=== PATIENT | female | born 1995 | race Caucasian/White ===

== ENCOUNTER 2019-05-30 16:51 | Emergency (ER) | payer SELFPAY ==
[~2019-05-30] VITALS: Ht 165.1 cm; Wt 73.5 kg
== END 2019-05-30 19:15 | disposition home or self-care (01) ==
LOC: ED 16:51
DX: O26.891 Other specified pregnancy related conditions, first trimester (principal); S92.531A Displaced fracture of distal phalanx of right lesser toe(s), initial encounter for closed fracture; Z3A.12 12 weeks gestation of pregnancy; W10.9XXA Fall (on) (from) unspecified stairs and steps, initial encounter; Y93.01 Activity, walking, marching and hiking; Y92.89 Other specified places as the place of occurrence of the external cause; Y99.8 Other external cause status

== ENCOUNTER 2020-05-17 15:19 | Emergency (ER) | payer OTHER ==
[~2020-05-17] VITALS: Ht 165.1 cm; Wt 65.8 kg
[2020-05-17 16:00] LABS: BASO % 0.3 % (0.0-1.0); HEMATOCRIT 39.8 % (37.0-47.0); LYMPH # 1.1 10*3/uL (1.3-4.4); LYMPH % 10.6 % (27.0-41.0); MEAN CELL VOLUME 88.4 fl (81.0-99.0); MEAN CORPUSCULAR HGB 28.7 pg (27.0-31.0); MEAN CORPUSCULAR HGB CONC 32.4 g/dl (33.0-37.0); MEAN PLATELET VOLUME 12.6 fl (9.6-12.3); MONO # 0.4 10*3/uL (0.1-1.0); MONO % 3.7 % (3.0-9.0); NEUT # 8.7 10*3/uL (2.3-7.9); NEUT % 85.2 % (47.0-73.0); PLATELET COUNT AUTOMATED 222 10*3/uL (130-400); RED CELL DISTRI WIDTH 13.1 % (0-14.5); WHITE BLOOD COUNT 10.2 10*3/uL (4.8-10.8)
[2020-05-17 16:17] LABS: ALBUMIN 3.4 gm/dl (3.1-4.5); ALKALINE PHOSPHATASE 209 U/L (45-117); BUN 8 mg/dl (7-24); CHLORIDE 108 mmol/L (98-107); CREATININE 0.73 mg/dL (0.55-1.02); POTASSIUM 3.2 mmol/L (3.5-5.1); SGOT/AST 162 IU/L (3-35); SGPT/ALT 134 U/L (12-78); SODIUM 141 mmol/L (136-145); TOTAL PROTEIN 7.8 gm/dL (6.4-8.2)
[2020-05-17 16:19] LABS: BETA-HCG, QUANT < 1.0 mIU/mL (1-3)
[2020-05-17 16:37] LABS: BILIRUBIN 2+ (Negative); BLOOD Negative (Negative); CLARITY Cloudy (Clear); COLOR Dark Yellow (Yellow); GLUCOSE Negative (Negative); KETONE 3+ (Negative); LEUKO ESTERASE 1+ (Negative); NITRITE Negative (Negative); SPECIFIC GRAVITY >= 1.030 (1.001-1.030)
[2020-05-17 16:52] LABS: BACTERIA 2+; MUCOUS 1+; WBC 16-20 wbc/hpf (0-5)
[2020-05-17] MEDS ORDERED: HYDROCODONE-AC1 EAC1 PO (17:14)
== END 2020-05-17 17:22 | disposition home or self-care (01) ==
LOC: ED 15:19
PROVIDERS: Student in an Organized Health Care Education/Training Program
DX: K80.50 Calculus of bile duct without cholangitis or cholecystitis without obstruction (principal)

== ENCOUNTER 2020-05-19 11:03 | Inpatient (IN) | payer OTHER ==
[~2020-05-19] VITALS: Ht 165.1 cm; Wt 66.0 kg
[~2020-05-19 11:03] MED LIST: HYDROCODONE-AC1 EAC1 PO
[2020-05-19 11:11] VITALS: BP 118/68
[2020-05-19 11:54] LABS: BASO % 0.4 % (0.0-1.0); EOS % 0.3 % (1.0-4.0); HEMATOCRIT 41.8 % (37.0-47.0); LYMPH # 1.5 10*3/uL (1.3-4.4); LYMPH % 13.4 % (27.0-41.0); MEAN CELL VOLUME 90.9 fl (81.0-99.0); MEAN CORPUSCULAR HGB 28.7 pg (27.0-31.0); MEAN CORPUSCULAR HGB CONC 31.6 g/dl (33.0-37.0); MEAN PLATELET VOLUME 12.1 fl (9.6-12.3); MONO # 0.4 10*3/uL (0.1-1.0); MONO % 3.9 % (3.0-9.0); NEUT # 8.9 10*3/uL (2.3-7.9); NEUT % 81.7 % (47.0-73.0); PLATELET COUNT AUTOMATED 247 10*3/uL (130-400); RED CELL DISTRI WIDTH 13.9 % (0-14.5); WHITE BLOOD COUNT 10.9 10*3/uL (4.8-10.8)
[2020-05-19 12:04] VITALS: BP 110/69
[2020-05-19 12:10] LABS: ALBUMIN 3.4 gm/dl (3.1-4.5); ALKALINE PHOSPHATASE 292 U/L (45-117); BUN 12 mg/dl (7-24); CHLORIDE 109 mmol/L (98-107); LIPASE 71 U/L (73-393); SGOT/AST 173 IU/L (3-35); SGPT/ALT 207 U/L (12-78); SODIUM 139 mmol/L (136-145); TOTAL PROTEIN 8.3 gm/dL (6.4-8.2)
[2020-05-19 12:14] LABS: BETA-HCG, QUANT < 1.0 mIU/mL (1-3)
[2020-05-19 13:21] LABS: BILIRUBIN 2+ (Negative); BLOOD Negative (Negative); CLARITY Cloudy (Clear); COLOR Dark Yellow (Yellow); GLUCOSE Negative (Negative); KETONE Negative (Negative); LEUKO ESTERASE 1+ (Negative); NITRITE Negative (Negative); PH 5.5 (4.5-8.0); SPECIFIC GRAVITY >= 1.030 (1.001-1.030)
[2020-05-19 13:27] LABS: BACTERIA 2+; MUCOUS 1+
[2020-05-19 13:28] LABS: EPITHELIAL CELLS 16-20
[2020-05-19 13:29] LABS: RBC 0-2 rbc/hpf (0-2); WBC 21-30 wbc/hpf (0-5)
[2020-05-19 15:22] VITALS: BP 122/76
[2020-05-19 15:40] VITALS: BP 123/74
[2020-05-19 20:00] VITALS: BP 120/76
[2020-05-20] VITALS (11 sets, daily range): BP systolic 102–142; BP diastolic 68–95
[2020-05-20 06:38] LABS: BASO % 0.3 % (0.0-1.0); EOS # 0.1 10*3/uL (0.0-0.4); EOS % 1.9 % (1.0-4.0); HEMATOCRIT 35.7 % (37.0-47.0); LYMPH # 1.4 10*3/uL (1.3-4.4); LYMPH % 21.8 % (27.0-41.0); MEAN CELL VOLUME 91.8 fl (81.0-99.0); MEAN CORPUSCULAR HGB CONC 31.7 g/dl (33.0-37.0); MEAN PLATELET VOLUME 12.6 fl (9.6-12.3); MONO # 0.5 10*3/uL (0.1-1.0); NEUT # 4.2 10*3/uL (2.3-7.9); NEUT % 67.8 % (47.0-73.0); PLATELET COUNT AUTOMATED 212 10*3/uL (130-400); RED BLOOD COUNT 3.89 10*6/uL (4.10-5.10); RED CELL DISTRI WIDTH 13.7 % (0-14.5); WHITE BLOOD COUNT 6.2 10*3/uL (4.8-10.8)
[2020-05-20 06:59] LABS: ALBUMIN 2.7 gm/dl (3.1-4.5); BUN 9 mg/dl (7-24); CHLORIDE 111 mmol/L (98-107); CHOLESTEROL 147 mg/dL (<200); CREATININE 0.65 mg/dL (0.55-1.02); POTASSIUM 3.9 mmol/L (3.5-5.1); SGOT/AST 275 IU/L (3-35); SGPT/ALT 263 U/L (12-78); SODIUM 140 mmol/L (136-145)
[2020-05-20 07:07] LABS: ALKALINE PHOSPHATASE 263 U/L (45-117); FREE T4 1.12 ng/dl (0.76-1.46); HDL CHOLESTEROL 42 mg/dl (40-60); LDL CHOLESTEROL 82 mg/dL (9-159); TOTAL PROTEIN 6.3 gm/dL (6.4-8.2); TRIGLYCERIDES 115 mg/dl (<150); VLDL CHOLESTEROL 23 mg/dL (6-40)
[2020-05-20 09:42] LABS: VITAMIN D, 25-HYDROXY 22.4 ng/mL (30-100)
== END 2020-05-20 20:25 | disposition short-term general hospital (02) | DRG 263 ==
LOC: ED 11:03 → 4E 14:33 → EDHOLD 14:33 → 4E 15:23
PROVIDERS: Emergency Medicine; Family Medicine; ADMIT Student in an Organized Health Care Education/Training Program; ATTEND Student in an Organized Health Care Education/Training Program
PROC: 0FT44ZZ Resection of Gallbladder, Percutaneous Endoscopic Approach (ICD-10-PCS; principal; 2020-05-20)
PROC: BF131ZZ Fluoroscopy of Gallbladder and Bile Ducts using Low Osmolar Contrast (ICD-10-PCS; 2020-05-20)
DX: K80.32 Calculus of bile duct with acute cholangitis without obstruction (principal); E83.41 Hypermagnesemia; E44.1 Mild protein-calorie malnutrition; R74.01 Elevation of levels of liver transaminase levels; D64.9 Anemia, unspecified; E80.6 Other disorders of bilirubin metabolism; E87.8 Other disorders of electrolyte and fluid balance, not elsewhere classified; E43 Unspecified severe protein-calorie malnutrition; R73.9 Hyperglycemia, unspecified; Z79.1 Long term (current) use of non-steroidal anti-inflammatories (NSAID); Z68.24 Body mass index [BMI] 24.0-24.9, adult